=== PATIENT | female | born 1950 | race Caucasian/White ===

== ENCOUNTER 2023-05-07 05:56 | Day surgery (SDC) | payer OTHER ==
[2023-05-07] MEDS ORDERED: CEFOXITIN SODIUM 2,000 MG VIAL IV ONE (07:24)
[2023-05-07] MEDS ORDERED: POVIDONE-IODINE 118 ML BOTT TOP ONE ×2 (09:18→10:15)
[2023-05-07] MEDS ORDERED: CEFOXITIN SODIUM 2,000 MG VIAL IV SCH (10:15)
[2023-05-07] MEDS ORDERED: MORGIDOX100 MG PO (11:10)
[2023-05-07] MEDS ORDERED: NAPR500T14 PO (11:10)
[2023-05-07] MEDS ORDERED: PROMETHAZINE HCL 50 MG/ML AMPUL IM ONE (11:15)
[2023-05-07] MEDS ORDERED: MORPHINE SULFATE 4 MG/ML VIAL IV PRN (11:15)
[2023-05-07] MEDS ORDERED: ONDANSETRON HCL 2 MG/ML VIAL ONE (12:24)
== END 2023-05-07 15:45 | disposition home or self-care (01) ==
LOC: CIR.AMB 05:56
PROVIDERS: ATTEND Obstetrics & Gynecology
DX: D25.0 Submucous leiomyoma of uterus (principal); N84.0 Polyp of corpus uteri; N95.0 Postmenopausal bleeding; Z20.822 Contact with and (suspected) exposure to COVID-19